=== PATIENT | female | born 1960 | race Caucasian/White ===

== ENCOUNTER → 2023-09-26 | Day surgery (SDC) | payer OTHER ==
[2023-09-21 13:22] LABS: INR 0.97; PROTHROMBIN TIME 13.6 seconds (11.9-14.5)
[2023-09-21 13:23] LABS: PARTIAL THROMBOPLASTIN TIME 24.2 seconds (23.8-35.5)
[2023-09-21 13:25] LABS: BASOPHILS % 0.5 % (0.0-1.0); EOSINOPHILS # (AUTO) 0.1 (0.0-0.4); EOSINOPHILS % 1.3 % (0.0-6.0); HEMOGLOBIN 14.6 g/dL (12.0-16.0); LYMPHOCYTES # (AUTO) 2.5 (1.0-3.2); LYMPHOCYTES % 30.3 % (18.0-39.1); MEAN CORPUSCULAR HEMOGLOBIN 28.9 pg (28-32); MONOCYTES # (AUTO) 0.9 (0.2-0.8); MONOCYTES % 11.2 % (4.4-11.3); NEUTROPHILS # (AUTO) 4.6 (2.1-6.9); NEUTROPHILS % 56.2 % (38.7-80.0); PLATELET COUNT 354 x10e3/uL (140-360); RED BLOOD COUNT 5.06 x10e6/uL (3.6-5.1); RED CELL DISTRIBUTION WIDTH 13.1 % (11.7-14.4); WHITE BLOOD COUNT 8.25 x10e3/uL (4.8-10.8)
[2023-09-21 13:55] LABS: ANION GAP 18.1 mmol/L (8-16); CALCIUM 9.7 mg/dL (8.4-10.2); CREATININE, SERUM 1.05 mg/dL (0.57-1.11); POTASSIUM 4.1 mmol/L (3.5-5.1)
[~2023-09-26] MED LIST: ALIGN4 MG PO; BIOTIN 800 MCG1 EACH PO; BREYNA 160-4.10.3 GM INH; BUSPIRONE HCL10 MG PO; CALCIUM CARBON500 MG PO; CLOPIDOGREL75 MG PO; CYMBALTA20 MG PO; DEXMEDETOMIDINE HCL 200 MCG/2 ML VIAL ONE; DICYCLOMINE HCL20 MG PO; FAMOTIDINE20 MG PO; FENTANYL CITRATE/PF 100MCG/2 ML INJ ONE; FISH OIL 1,001000 M1 PO; ISOSORBIDE DINI20 MG PO; LACTATED RINGER'S 1,000 ML BAG ONE; LACTATED RINGER'S 1,000 ML ONE; LEVOTHYROXINE50 MCG PO; LORATADINE10 MG PO; LOSARTAN POTAS100 MG PO; MECLIZINE HCL12.5 MG PO; METAMUCIL0.4 GM PO; METOPROLOL SUCC50 MG PO; NASONEX 24HR AL17 ML; OMEPRAZOLE40 MG PO; ONDANSETRON ODT4 MG PO; PHENYLEPHRINE HCL 1% 10 MG/ML VIAL ONE; PROPOFOL IV EMULSION 10 MG/ML 20 ML VIAL ONE; REGLAN10 MG PO; SODIUM CHLORIDE 0.9% INJ 100 ML BAG ONE; SUCRALFATE1 GM PO; TRICOR145 MG PO; TYLENOL325 MG PO; VENTOLIN HFA18 GM INH; ZOLPIDEM TARTRAT5 MG PO
[2023-09-26] MEDS: LACTATED RINGER'S 1,000 ML BAG IV ONE (08:25)
[2023-09-26 10:22] VITALS: TEMP 97.5
[2023-09-26 11:00] VITALS: BP 100/66; PULSE 74; RESP 18; O2SAT 97
== END | disposition home or self-care (01) ==
LOC: OR 07:43
PROVIDERS: ATTEND Internal Medicine Gastroenterology
DX: Z12.11 Encounter for screening for malignant neoplasm of colon (principal); K52.9 Noninfective gastroenteritis and colitis, unspecified; K64.8 Other hemorrhoids; K21.9 Gastro-esophageal reflux disease without esophagitis; K76.0 Fatty (change of) liver, not elsewhere classified; G47.33 Obstructive sleep apnea (adult) (pediatric); J44.9 Chronic obstructive pulmonary disease, unspecified; E66.01 Morbid (severe) obesity due to excess calories; E03.9 Hypothyroidism, unspecified; I12.9 Hypertensive chronic kidney disease with stage 1 through stage 4 chronic kidney disease, or unspecified chronic kidney disease; N18.2 Chronic kidney disease, stage 2 (mild); I25.10 Atherosclerotic heart disease of native coronary artery without angina pectoris; F41.9 Anxiety disorder, unspecified; F32.A Depression, unspecified; Z01.812 Encounter for preprocedural laboratory examination; Z79.02 Long term (current) use of antithrombotics/antiplatelets; Z79.899 Other long term (current) drug therapy; Z85.41 Personal history of malignant neoplasm of cervix uteri; Z98.61 Coronary angioplasty status
CPT/HCPCS: 36415; 45380; 80048; 85025; 85610; 85730; J2371; J2704; J3010; J7050; J7121